=== PATIENT | male | born 1980 | race African-American/Black ===

== ENCOUNTER 2018-03-31 21:01 | Emergency (ER) | payer SELFPAY ==
[2018-03-31] MEDS: AZITHROMYCIN 250 MG TABLET. PO (22:01)
[2018-03-31] MEDS: cefTRIAXone IM 250 MG VIAL IM (22:01)
== END 2018-03-31 22:32 | disposition home or self-care (01) ==
LOC: ER 22:32
DX: Z20.2 Contact with and (suspected) exposure to infections with a predominantly sexual mode of transmission (principal); F12.10 Cannabis abuse, uncomplicated; Z79.2 Long term (current) use of antibiotics
CPT/HCPCS: 87491; 87591; 96372; 99283; J0696; Q0144